=== PATIENT | female | born 1960 | race American Indian/Alaskan Native ===

== ENCOUNTER → 2017-06-29 | Outpatient (CLI) | payer MEDICAID, OTHER ==
[~2017-06-29] MED LIST: HOME OXYGEN; LORA10TA37; PSEU30TA17 PO
== END | disposition home or self-care (01) ==
LOC: CYBERKNIFE 10:33
PROVIDERS: ATTEND Radiology Radiation Oncology
DX: D35.2 Benign neoplasm of pituitary gland (principal); I10 Essential (primary) hypertension
CPT/HCPCS: 99214; G0463

== ENCOUNTER → 2017-11-22 | Outpatient (CLI) | payer MEDICAID ==
[~2017-11-22] MED LIST changes: +GADOBUTROL 10 MMOL/10 ML VIAL ONE
== END | disposition home or self-care (01) ==
LOC: CFH 13:06
PROVIDERS: ATTEND Radiology Radiation Oncology
DX: D35.2 Benign neoplasm of pituitary gland (principal); I10 Essential (primary) hypertension
CPT/HCPCS: 70553; 82565; A9585

== ENCOUNTER → 2017-12-08 | Outpatient (CLI) | payer MEDICAID ==
[~2017-12-08] MED LIST changes: -GADOBUTROL 10 MMOL/10 ML VIAL ONE
== END | disposition home or self-care (01) ==
LOC: ROC 07:21
PROVIDERS: ATTEND Radiology Radiation Oncology
DX: D35.2 Benign neoplasm of pituitary gland (principal)
CPT/HCPCS: 99213; G0463

== ENCOUNTER → 2018-11-22 | Outpatient (CLI) | payer MEDICAID | END | disposition home or self-care (01) | LOC: ROC 07:36 | PROVIDERS: ATTEND Radiology Radiation Oncology | DX: Z08 Encounter for follow-up examination after completed treatment for malignant neoplasm (principal); D35.2 Benign neoplasm of pituitary gland; H53.47 Heteronymous bilateral field defects; R41.0 Disorientation, unspecified; R53.83 Other fatigue | CPT/HCPCS: 99213; G0463 ==

== ENCOUNTER → 2020-06-25 | Outpatient (CLI) | payer MEDICAID | END | disposition home or self-care (01) | LOC: ROC 09:01 | PROVIDERS: ATTEND Radiology Radiation Oncology | DX: D35.2 Benign neoplasm of pituitary gland (principal) | CPT/HCPCS: 99213; G0463 ==